=== PATIENT | female | born 1965 | race African-American/Black ===

== ENCOUNTER 2019-01-09 19:48 | Inpatient (IN) | payer MEDICAID, OTHER ==
[~2019-01-09] VITALS: Ht 165.1 cm; Wt 135.6 kg
[2019-01-09] MEDS ORDERED: SODIUM CHLORIDE 0.9% 1,000 ML IV ONE (23:16)
[2019-01-09] MEDS ORDERED: ONDANSETRON HCL 4MG/2ML INJ IV STA (23:16)
[2019-01-09 23:50] LABS: BASOPHILS % 0.3 % (0.0-2.0); EOSINOPHILS % 0.1 % (0.0-5.0); HEMATOCRIT. 39.1 % (36.0-48.0); HEMOGLOBIN. 12.6 g/dL (12.0-16.0); LYMPHOCYTES % 14.8 % (20.0-50.0); MEAN CORPUSCULAR HEMOGLOBIN 30.7 pg (28.0-32.0); MEAN CORPUSCULAR VOLUME 95.6 fL (81.0-99.0); MEAN PLATELET VOLUME 7.6 fl (7.4-10.4); MONOCYTES % 5.5 % (2.0-8.0); NEUTROPHILS % 79.3 % (40.0-76.0); PLATELET 367 x1000/uL (130-400); RED BLOOD CELL COUNT 4.09 mill/uL (4.2-5.4); RED CELL DISTRIBUTION WIDTH 15.3 % (11.6-14.6)
[2019-01-09 23:53] LABS: CHLORIDE 105 mEq/L (98-107)
[2019-01-10] VITALS (12 sets, daily range): BP systolic 122–165; BP diastolic 64–114
[2019-01-10 00:07] LABS: D-DIMER 11.04 mg/L FEU (<0.50); INR 1.1; PARTIAL THROMBOPLASTIN TIME 24.7 sec (23.4-31.0)
[2019-01-10 00:08] LABS: BG BASE EXCESS -2.1 mmol/L (-2.0-2.0); BG CARBOXYHEMOGLOBIN 0.1 % (0.5-1.5); BG DEOXYHEMOGLOBIN 0.7 % (0.0-5.0); BG FRACTION INSPIRED OXYGEN 100; BG HCO3 ACT 21.3 mmol/L (22.0-26.0); BG METHEMOGLOBIN 0.2 % (0.0-1.5); BG OXYGEN SATURATION 99.3 % (92.0-98.5); BG PCO2 32.3 mmHg (35.0-45.0); BG PH 7.438 (7.350-7.450); BG PO2 198.6 mmHg (75.0-100.0); BG SAMPLE SITE RIGHT RADIAL; BG TOTAL HEMOGLOBIN 12.1 g/dL (12.0-18.0); BG VENT MODE MASK - NRB
[2019-01-10] MEDS ORDERED: HEPARIN 5000 UNITS/ML VIAL IV STA (00:14)
[2019-01-10] MEDS ORDERED: HEPARIN 25,000 UNITS PREMIX 500 ML IV PRN (00:15)
[2019-01-10] MEDS ORDERED: HEPARIN BOLUS PRN aPTT <36 IV (00:45)
[2019-01-10] MEDS ORDERED: HEPARIN BOLUS PRN aPTT 37-44 IV (00:45)
[2019-01-10] MEDS ORDERED: IPRATROPIUM/ALBUTEROL 0.5-3(2.5)MG/3ML NEB INH PRN (01:15)
[2019-01-10] MEDS ORDERED: IOHEXOL-350 100 ML BOTTLE ONE (01:39)
[2019-01-10] MEDS ORDERED: HEPARIN 25,000 UNITS PREMIX 500 ML IV SCH (02:00)
[2019-01-10] MEDS ORDERED: HEPARIN 80 UNITS/KG BOLUS IV SCH (02:00)
[2019-01-10] MEDS ORDERED: MORPHINE SULFATE 10 MG/ML CPJ IV ONE ×2 (03:15→06:15)
[2019-01-10] MEDS: IPRATROPIUM/ALBUTEROL 0.5-3(2.5)MG/3ML NEB HHN SCH (05:15)
[2019-01-10 06:18] LABS: HEMATOCRIT 36.5 % (36.0-48.0); HEMOGLOBIN 11.8 g/dL (12.0-16.0); MEAN CORPUSCULAR HEMOGLOBIN 30.8 pg (28.0-32.0); MEAN CORPUSCULAR VOLUME 95.7 fL (81.0-99.0); PLATELET 423 x1000/uL (130-400); RED BLOOD CELL COUNT 3.82 mill/uL (4.2-5.4); RED CELL DISTRIBUTION WIDTH 15.6 % (11.6-14.6)
[2019-01-10 06:21] LABS: CHLORIDE 107 mEq/L (98-107)
[2019-01-10] MEDS ORDERED: DOCUSATE SODIUM 100MG CAPSULE PO PRN (09:00)
[2019-01-10 12:36] LABS: BG BASE EXCESS -1.6 mmol/L (-2.0-2.0); BG CARBOXYHEMOGLOBIN 0.3 % (0.5-1.5); BG DEOXYHEMOGLOBIN 1.4 % (0.0-5.0); BG FRACTION INSPIRED OXYGEN 100; BG HCO3 ACT 23.2 mmol/L (22.0-26.0); BG METHEMOGLOBIN 0.2 % (0.0-1.5); BG OXYGEN SATURATION 98.6 % (92.0-98.5); BG OXYHEMOGLOBIN 98.1 % (94.0-97.0); BG PCO2 39.8 mmHg (35.0-45.0); BG PH 7.384 (7.350-7.450); BG PO2 126.6 mmHg (75.0-100.0); BG SAMPLE SITE RIGHT RADIAL; BG TOTAL HEMOGLOBIN 11.3 g/dL (12.0-18.0); BG VENT MODE MASK - NRB
[2019-01-10] MEDS ORDERED: NORE0.3520 PO (12:38)
[2019-01-10] MEDS ORDERED: CEFAZOLIN 1000MG PREMIX 50 ML IV NR (14:15)
[2019-01-10] MEDS ORDERED: CEFAZOLIN 1000MG PREMIX 50 ML IV ONE (14:19)
[2019-01-10] MEDS ORDERED: LIDOCAINE HCL 1% 20ML VIAL (Pyxis) INJ ONE (14:20)
[2019-01-10] MEDS ORDERED: SODIUM BICARBONATE 4% (2.4MEQ) 5ML VIAL IV ONE (14:20)
[2019-01-10] MEDS: TRAMADOL 50MG TABLET PO PRN ×2 (14:25→22:15)
[2019-01-10] MEDS ORDERED: IOHEXOL-300 50 ML BOTTLE IV ONE (14:33)
[2019-01-10] MEDS ORDERED: IOHEXOL-300 100 ML BOTTLE ONE (14:33)
[2019-01-10] MEDS ORDERED: HYDROMORPHONE HCL/PF 2MG/ML CPJ IM PRN (15:45)
[2019-01-10] MEDS: SODIUM CHLORIDE 0.9% 1,000 ML IV SCH (17:01)
[2019-01-10] MEDS: CYCLOBENZAPRINE 10MG TABLET PO PRN (18:30)
[2019-01-10] MEDS: GABAPENTIN 300MG CAPSULE PO SCH (22:06)
[2019-01-11] VITALS (12 sets, daily range): BP systolic 107–142; BP diastolic 66–93
[2019-01-11] MEDS: SODIUM CHLORIDE 0.9% 1,000 ML IV SCH ×2 (00:20→12:35)
[2019-01-11] MEDS: IPRATROPIUM/ALBUTEROL 0.5-3(2.5)MG/3ML NEB HHN SCH ×7 (02:32→23:57)
[2019-01-11 07:01] LABS: BASOPHILS % 0.2 % (0.0-2.0); HEMATOCRIT. 26.4 % (36.0-48.0); HEMOGLOBIN. 8.4 g/dL (12.0-16.0); LYMPHOCYTES % 13.9 % (20.0-50.0); MEAN CORPUSCULAR HEMOGLOBIN 30.3 pg (28.0-32.0); MEAN CORPUSCULAR VOLUME 95.5 fL (81.0-99.0); MONOCYTES % 7.6 % (2.0-8.0); NEUTROPHILS % 78.3 % (40.0-76.0); PLATELET 336 x1000/uL (130-400); RED BLOOD CELL COUNT 2.76 mill/uL (4.2-5.4); RED CELL DISTRIBUTION WIDTH 15.1 % (11.6-14.6)
[2019-01-11] MEDS: GABAPENTIN 300MG CAPSULE PO SCH ×3 (07:15→21:41)
[2019-01-11 09:01] LABS: BG CARBOXYHEMOGLOBIN 0.3 % (0.5-1.5); BG DEOXYHEMOGLOBIN 2.1 % (0.0-5.0); BG FRACTION INSPIRED OXYGEN 50; BG HCO3 ACT 19.3 mmol/L (22.0-26.0); BG OXYGEN SATURATION 97.9 % (92.0-98.5); BG OXYHEMOGLOBIN 96.6 % (94.0-97.0); BG PCO2 28.9 mmHg (35.0-45.0); BG PH 7.442 (7.350-7.450); BG PO2 109.2 mmHg (75.0-100.0); BG SAMPLE SITE RIGHT RADIAL; BG TOTAL HEMOGLOBIN 9.7 g/dL (12.0-18.0); BG VENT MODE MASK - VENTI
[2019-01-11] MEDS ORDERED: CEFTRIAXONE 1 G PREMIX 50 ML IV SCH (16:45)
[2019-01-11] MEDS ORDERED: SODIUM CHLORIDE 0.9% 1,000 ML IV NR (16:45)
[2019-01-11] MEDS: CEFTRIAXONE 1,000 MG in DEXTROSE 5% WATER 50 ML IV SCH (20:30)
[2019-01-11] MEDS: ACETAMINOPHEN 325MG TABLET PO PRN (21:53)
[2019-01-12] VITALS (20 sets, daily range): BP systolic 104–133; BP diastolic 48–99
[2019-01-12 01:04] LABS: HEMATOCRIT 24.7 % (36.0-48.0); HEMOGLOBIN 7.8 g/dL (12.0-16.0)
[2019-01-12] MEDS: SODIUM CHLORIDE 0.9% 1,000 ML IV SCH ×3 (03:11→23:14)
[2019-01-12] MEDS: IPRATROPIUM/ALBUTEROL 0.5-3(2.5)MG/3ML NEB HHN SCH ×5 (04:17→21:09)
[2019-01-12] MEDS: GABAPENTIN 300MG CAPSULE PO SCH ×3 (05:48→21:22)
[2019-01-12 06:33] LABS: BASOPHILS % 0.3 % (0.0-2.0); HEMATOCRIT. 22.4 % (36.0-48.0); HEMOGLOBIN. 7.1 g/dL (12.0-16.0); LYMPHOCYTES % 14.6 % (20.0-50.0); MEAN CORPUSCULAR HEMOGLOBIN 30.2 pg (28.0-32.0); MEAN CORPUSCULAR VOLUME 95.7 fL (81.0-99.0); MONOCYTES % 7.8 % (2.0-8.0); NEUTROPHILS % 77.3 % (40.0-76.0); PLATELET 290 x1000/uL (130-400); RED BLOOD CELL COUNT 2.34 mill/uL (4.2-5.4); RED CELL DISTRIBUTION WIDTH 14.7 % (11.6-14.6)
[2019-01-12 07:24] LABS: CLARITY URINE TURBID (CLEAR); COLOR URINE ORANGE (YELLOW); KETONES URINE NEGATIVE (NEGATIVE); LEUKOCYTE ESTERASE URINE 2+ (NEGATIVE); NITRITE URINE POSITIVE (NEGATIVE); OCCULT BLOOD URINE 1+ (NEGATIVE); PROTEIN URINE 1+ (NEGATIVE); SPECIFIC GRAVITY URINE 1.023 (1.005-1.030); UROBILINOGEN URINE 0.2 E.U./dL (0.2-1.0)
[2019-01-12] MEDS: CEFTRIAXONE 1,000 MG in DEXTROSE 5% WATER 50 ML IV SCH ×2 (08:13→21:22)
[2019-01-12 16:05] LABS: HEMATOCRIT 21.5 % (36.0-48.0)
[2019-01-12 16:19] LABS: HEMOGLOBIN 6.8 g/dL (12.0-16.0)
[2019-01-12] MEDS ORDERED: SODIUM CHLORIDE 0.9% 1,000 ML IV NR (19:15)
[2019-01-12] MEDS ORDERED: SODIUM CHLORIDE 0.9% 1,000 ML IV ONE (19:15)
[2019-01-12] MEDS: ZOLPIDEM TARTRATE 5MG TABLET PO PRN (22:16)
[2019-01-13] VITALS (21 sets, daily range): BP systolic 89–155; BP diastolic 55–111
[2019-01-13] MEDS: IPRATROPIUM/ALBUTEROL 0.5-3(2.5)MG/3ML NEB HHN SCH ×6 (00:28→20:28)
[2019-01-13 04:20] LABS: HEMATOCRIT 22.8 % (36.0-48.0); HEMOGLOBIN 7.3 g/dL (12.0-16.0)
[2019-01-13] MEDS: GABAPENTIN 300MG CAPSULE PO SCH ×3 (05:35→23:52)
[2019-01-13 09:21] LABS: HEMATOCRIT 23.4 % (36.0-48.0); HEMOGLOBIN 7.6 g/dL (12.0-16.0); MEAN CORPUSCULAR HEMOGLOBIN 30.6 pg (28.0-32.0); MEAN CORPUSCULAR VOLUME 93.7 fL (81.0-99.0); PLATELET 264 x1000/uL (130-400); RED CELL DISTRIBUTION WIDTH 15.2 % (11.6-14.6)
[2019-01-13] MEDS: CEFTRIAXONE 1,000 MG in DEXTROSE 5% WATER 50 ML IV SCH ×2 (15:02→20:07)
[2019-01-13 15:40] LABS: HEMATOCRIT 27.8 % (36.0-48.0)
[2019-01-13] MEDS ORDERED: MAGNESIUM HYDROXIDE 400MG/5ML 30ML UDC PO PRN (16:45)
[2019-01-13] MEDS: DOCUSATE SODIUM 100MG CAPSULE PO SCH (18:37)
[2019-01-13] MEDS: TRAMADOL 50MG TABLET PO PRN (20:27)
[2019-01-13] MEDS: ZOLPIDEM TARTRATE 5MG TABLET PO PRN (20:45)
[2019-01-13] MEDS: SODIUM CHLORIDE 0.9% 1,000 ML IV SCH (20:56)
[2019-01-14] VITALS (12 sets, daily range): BP systolic 114–163; BP diastolic 57–110
[2019-01-14] MEDS: IPRATROPIUM/ALBUTEROL 0.5-3(2.5)MG/3ML NEB HHN SCH ×7 (00:48→20:05)
[2019-01-14 00:56] LABS: HEMATOCRIT 26.2 % (36.0-48.0); HEMOGLOBIN 8.7 g/dL (12.0-16.0)
[2019-01-14] MEDS: GABAPENTIN 300MG CAPSULE PO SCH ×3 (05:01→21:31)
[2019-01-14] MEDS: SODIUM CHLORIDE 0.9% 1,000 ML IV SCH ×2 (05:14→14:42)
[2019-01-14 07:36] LABS: HEMATOCRIT. 24.7 % (36.0-48.0); MEAN CORPUSCULAR HEMOGLOBIN 29.6 pg (28.0-32.0); MEAN CORPUSCULAR VOLUME 91.4 fL (81.0-99.0); MEAN PLATELET VOLUME 7.9 fl (7.4-10.4); PLATELET 252 x1000/uL (130-400); RED CELL DISTRIBUTION WIDTH 15.6 % (11.6-14.6)
[2019-01-14 08:19] LABS: CHLORIDE 112 mEq/L (98-107)
[2019-01-14 08:26] LABS: PHOSPHORUS 1.8 mg/dL (2.5-4.9)
[2019-01-14] MEDS: DOCUSATE SODIUM 100MG CAPSULE PO SCH (09:00)
[2019-01-14] MEDS: TRAMADOL 50MG TABLET PO PRN ×2 (09:35→14:40)
[2019-01-14] MEDS ORDERED: LIDOCAINE HCL 1% 20ML VIAL (Pyxis) INJ ONE (10:03)
[2019-01-14] MEDS: FLUTICASONE PROPIONATE 50MCG/SPRAY BOTTLE BOTHNSTRLS SCH (10:16)
[2019-01-14] MEDS ORDERED: HEPARIN 100 UNITS/1 ML VIAL IVF PRN (11:00)
[2019-01-14] MEDS: CEFTRIAXONE 1,000 MG in DEXTROSE 5% WATER 50 ML IV SCH (14:22)
[2019-01-14] MEDS: CALCIUM CARBONATE 1250MG TABLET (500MG ELEMENTAL CALCIUM) PO SCH ×2 (14:41→16:47)
[2019-01-14] MEDS: CYCLOBENZAPRINE 10MG TABLET PO PRN ×2 (14:41→21:31)
[2019-01-14] MEDS ORDERED: POTASSIUM PHOS,M-BASIC-D-BASIC 20 MMOL in DEXT 5% WATER 243.3333 ML IV SCH (15:30)
[2019-01-14 18:15] LABS: HEMATOCRIT 25.2 % (36.0-48.0); HEMOGLOBIN 8.1 g/dL (12.0-16.0)
[2019-01-14] MEDS: AMOXICILLIN/POTASSIUM CLAVULANATE 875/125MG TAB PO SCH (21:31)
[2019-01-14 23:19] LABS: NUCLEATED RED BLOOD CELLS 7 /100 WBC; PLATELET ESTIMATE NORMAL
[2019-01-14 23:42] LABS: HEMATOCRIT 25.3 % (36.0-48.0); HEMOGLOBIN 8.2 g/dL (12.0-16.0)
[2019-01-15] VITALS (16 sets, daily range): BP systolic 132–175; BP diastolic 75–112
[2019-01-15] MEDS: IPRATROPIUM/ALBUTEROL 0.5-3(2.5)MG/3ML NEB HHN SCH ×6 (00:05→21:48)
[2019-01-15] MEDS: SODIUM CHLORIDE 0.9% 1,000 ML IV SCH ×3 (01:14→20:47)
[2019-01-15 05:28] LABS: BASOPHILS % 0.4 % (0.0-2.0); EOSINOPHILS % 0.2 % (0.0-5.0); HEMOGLOBIN. 8.9 g/dL (12.0-16.0); LYMPHOCYTES % 15.7 % (20.0-50.0); MEAN CORPUSCULAR HEMOGLOBIN 29.8 pg (28.0-32.0); MEAN CORPUSCULAR VOLUME 93.3 fL (81.0-99.0); NEUTROPHILS % 75.7 % (40.0-76.0); PLATELET 275 x1000/uL (130-400); RED CELL DISTRIBUTION WIDTH 15.8 % (11.6-14.6)
[2019-01-15 05:49] LABS: CHLORIDE 108 mEq/L (98-107)
[2019-01-15 05:58] LABS: PHOSPHORUS 2.5 mg/dL (2.5-4.9)
[2019-01-15] MEDS: GABAPENTIN 300MG CAPSULE PO SCH ×2 (06:48→12:47)
[2019-01-15] MEDS: AMOXICILLIN/POTASSIUM CLAVULANATE 875/125MG TAB PO SCH ×2 (09:11→20:46)
[2019-01-15] MEDS: FLUTICASONE PROPIONATE 50MCG/SPRAY BOTTLE BOTHNSTRLS SCH (09:11)
[2019-01-15] MEDS: DOCUSATE SODIUM 100MG CAPSULE PO SCH (09:11)
[2019-01-15] MEDS: CALCIUM CARBONATE 1250MG TABLET (500MG ELEMENTAL CALCIUM) PO SCH ×3 (09:11→17:55)
[2019-01-15 16:23] LABS: HEMATOCRIT 25.3 % (36.0-48.0); HEMOGLOBIN 8.3 g/dL (12.0-16.0)
[2019-01-15] MEDS ORDERED: CLONIDINE 0.1MG TABLET PO PRN (19:30)
[2019-01-15] MEDS: AZITHROMYCIN 500 MG TABLET PO SCH (20:46)
[2019-01-15] MEDS: THROAT LOZENGES-BENZOCAINE/MENTH/CETYLPYRD CL LOZENGES MM PRN (21:36)
[2019-01-16] VITALS (8 sets, daily range): BP systolic 134–157; BP diastolic 77–109
[2019-01-16] MEDS: IPRATROPIUM/ALBUTEROL 0.5-3(2.5)MG/3ML NEB HHN SCH (03:13)
[2019-01-16] MEDS: GABAPENTIN 300MG CAPSULE PO SCH ×3 (06:15→13:06)
[2019-01-16] MEDS: THROAT LOZENGES-BENZOCAINE/MENTH/CETYLPYRD CL LOZENGES MM PRN ×2 (06:16→13:06)
[2019-01-16] MEDS: SODIUM CHLORIDE 0.9% 1,000 ML IV SCH (06:17)
[2019-01-16 06:44] LABS: BASOPHILS % 0.3 % (0.0-2.0); EOSINOPHILS % 0.5 % (0.0-5.0); HEMATOCRIT. 25.3 % (36.0-48.0); HEMOGLOBIN. 8.1 g/dL (12.0-16.0); LYMPHOCYTES % 17.3 % (20.0-50.0); MEAN CORPUSCULAR HEMOGLOBIN 30.2 pg (28.0-32.0); MEAN PLATELET VOLUME 8.4 fl (7.4-10.4); MONOCYTES % 6.1 % (2.0-8.0); NEUTROPHILS % 75.8 % (40.0-76.0); PLATELET 228 x1000/uL (130-400); RED BLOOD CELL COUNT 2.69 mill/uL (4.2-5.4); RED CELL DISTRIBUTION WIDTH 15.3 % (11.6-14.6)
[2019-01-16 07:26] LABS: CHLORIDE 108 mEq/L (98-107)
[2019-01-16] MEDS: CALCIUM CARBONATE 1250MG TABLET (500MG ELEMENTAL CALCIUM) PO SCH ×2 (08:47→13:06)
[2019-01-16] MEDS: AZITHROMYCIN 500 MG TABLET PO SCH (08:47)
[2019-01-16] MEDS: DOCUSATE SODIUM 100MG CAPSULE PO SCH (08:47)
[2019-01-16] MEDS: AMOXICILLIN/POTASSIUM CLAVULANATE 875/125MG TAB PO SCH (08:47)
[2019-01-16] MEDS: FLUTICASONE PROPIONATE 50MCG/SPRAY BOTTLE BOTHNSTRLS SCH (08:47)
[2019-01-16 09:11] LABS: BG BASE EXCESS -3.3 mmol/L (-2.0-2.0); BG CARBOXYHEMOGLOBIN 0.1 % (0.5-1.5); BG HCO3 ACT 19.5 mmol/L (22.0-26.0); BG METHEMOGLOBIN 0.3 % (0.0-1.5); BG OXYHEMOGLOBIN 96.6 % (94.0-97.0); BG PCO2 27.1 mmHg (35.0-45.0); BG PH 7.475 (7.350-7.450); BG PO2 92.1 mmHg (75.0-100.0); BG SAMPLE SITE RIGHT RADIAL; BG TOTAL HEMOGLOBIN 8.7 g/dL (12.0-18.0); BG VENT MODE NASAL CANNULA
[2019-01-16] MEDS: ACETAMINOPHEN 325MG TABLET PO PRN (13:06)
[2019-01-16] MEDS ORDERED: HYDROMORPHONE HCL/PF 2MG/ML CPJ IM PRN (13:30)
[2019-01-16] MEDS ORDERED: TRAMADOL 50MG TABLET PO PRN (13:30)
[2019-01-16] MEDS ORDERED: LIDOCAINE HCL/PF 1% 2ML VIAL ONE (14:33)
== END 2019-01-16 14:40 | disposition short-term general hospital (02) | DRG 134 ==
LOC: ER 19:57 → 5EST 01-10 01:29 → EDBEDREQSVC 01-10 01:32 → EDBEDREQTM 01-10 01:32 → EDBEDREQ 01-10 01:32 → ENRESERV 01-10 07:09
PROVIDERS: ADMIT Ophthalmology; ATTEND Ophthalmology
PROC: 06H03DZ Insertion of Intraluminal Device into Inferior Vena Cava, Percutaneous Approach (ICD-10-PCS; principal; 2019-01-10)
PROC: B5191ZZ Fluoroscopy of Inferior Vena Cava using Low Osmolar Contrast (ICD-10-PCS; 2019-01-10)
PROC: 30233N1 Transfusion of Nonautologous Red Blood Cells into Peripheral Vein, Percutaneous Approach (ICD-10-PCS; 2019-01-12)
PROC: 5A09357 Assistance with Respiratory Ventilation, Less than 24 Consecutive Hours, Continuous Positive Airway Pressure (ICD-10-PCS; 2019-01-12)
PROC: B54MZZA Ultrasonography of Right Upper Extremity Veins, Guidance (ICD-10-PCS; 2019-01-14)
PROC: 05HY33Z Insertion of Infusion Device into Upper Vein, Percutaneous Approach (ICD-10-PCS; 2019-01-14)
DX: I26.99 Other pulmonary embolism without acute cor pulmonale (principal); J96.01 Acute respiratory failure with hypoxia; N17.0 Acute kidney failure with tubular necrosis; I95.9 Hypotension, unspecified; D62 Acute posthemorrhagic anemia; E66.01 Morbid (severe) obesity due to excess calories; E83.51 Hypocalcemia; N84.0 Polyp of corpus uteri; E78.00 Pure hypercholesterolemia, unspecified; N93.9 Abnormal uterine and vaginal bleeding, unspecified; I10 Essential (primary) hypertension; N14.1 Nephropathy induced by other drugs, medicaments and biological substances; G47.30 Sleep apnea, unspecified; T50.8X5A Adverse effect of diagnostic agents, initial encounter; E89.2 Postprocedural hypoparathyroidism; N39.0 Urinary tract infection, site not specified; Z87.442 Personal history of urinary calculi; Z90.49 Acquired absence of other specified parts of digestive tract; Z95.828 Presence of other vascular implants and grafts; Z98.51 Tubal ligation status; Y92.89 Other specified places as the place of occurrence of the external cause; Z90.722 Acquired absence of ovaries, bilateral; I82.409 Acute embolism and thrombosis of unspecified deep veins of unspecified lower extremity
CPT/HCPCS: 36415; 36569; 36600; 37191; 71045; 71275; 76770; 76937; 80048; 82306; 82330; 82375; 82805; 83735; 83880; 83970; 84100; 84484; 85014; 85018; 85027; 85379; 86850; 86900; 86920; 93005; 93306; 93970; 94640; 94660; 96374; 96375; 99291; C1725; C1769; C1880; J0690; J0696; J1170; J1644; J2270; J2405; J3490; J7030; J7050; J7060; J7620; P9016; Q9967